=== PATIENT | female | born 1975 | race Caucasian/White ===

== ENCOUNTER 2017-08-05 10:36 | Emergency (ER) | payer MEDICAID ==
--- NOTE | 2017-08-05 12:20 | C.PDOC ---
History Of Present Illness 41 y/o female with PMH of hemorrhoids and diverticulitis presents to the ED for evaluation of rectal bleeding x 3 episodes today. Blood is bright red blood in the toilet after using the bathroom. Notes hard stool but no straining. Denies fever, rash, abdominal pain, nausea, vomiting , or history of anemia at this time. Time Seen by Provider: 08/05/17 11:51 Chief Complaint (Nursing): Abnormal Skin Integrity History Per: Patient History/Exam Limitations: no limitations Onset/Duration Of Symptoms: Hrs Current Symptoms Are (Timing): Still Present Additional History Per: Patient Past Medical History Reviewed: Historical Data, Nursing Documentation, Vital Signs Vital Signs: Last Vital Signs Temp 98.8 F 08/05/17 15:39 Pulse 62 08/05/17 15:39 Resp 17 08/05/17 15:39 BP 119/79 08/05/17 15:39 Pulse Ox 99 08/05/17 15:39 - Medical History PMH: No Chronic Diseases Surgical History: No Surg Hx Family History: States: Unknown Family Hx - Social History Hx Tobacco Use: Yes Hx Alcohol Use: No Hx Substance Use: No - Immunization History Hx Tetanus Toxoid Vaccination: No Hx Influenza Vaccination: No Hx Pneumococcal Vaccination: No Review Of Systems Constitutional: Negative for: Fever, Chills Gastrointestinal: Positive for: Other (rectal bleeding ). Negative for: Nausea , Vomiting, Abdominal Pain Physical Exam - Physical Exam Appears: Non-toxic, No Acute Distress Skin: Normal Color, Warm, Dry Head: Atraumatic, Normacephalic Eye(s): bilateral: Normal Inspection, EOMI Nose: Normal Oral Mucosa: Moist Neck: Supple Chest: Symmetrical, No Tenderness Cardiovascular: Rhythm Regular Respiratory: Normal Breath Sounds, No Rales, No Rhonchi, No Wheezing Gastrointestinal/Abdominal: Soft, No Tenderness, No Guarding, No Rebound Rectal: Rectal Tone, Blood Streaked Stool, Hemorrhoids (very small non thrombosed non tender hemorrhoid), No Tenderness Extremity: Normal ROM, Capillary Refill (less than 2 seconds ) Neurological/Psych: Oriented x3, Normal Speech, Normal Cognition ED Course And Treatment - Laboratory Results Result Diagrams: 08/05/17 12:46 08/05/17 13:26 O2 Sat by Pulse Oximetry: 95 (on RA ) Pulse Ox Interpretation: Normal Progress Note: Bloodwork and urinalysis ordered and reviewed. Discussed with pt no signs of anemia. She needs a colonoscopy and instructed to follow up with GI in 2 days. instructed to return to ER if symtpoms persist or worsen. Case discussed with Dr Padgett, agreed upon plan and treatment. Disposition - Disposition Referrals: Rob Muller MD [Staff Provider] - Disposition: HOME/ ROUTINE Disposition Time: 13:52 Condition: STABLE Additional Instructions: Follow up with primary medical doctor in 1-3 days without fail for further evaluation. Take medications as prescribed. Return to the emergency department at any time if symptoms persist or worsen. 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 - Scribe Statement The provider has reviewed the documentation as recorded by the Scribe (Mariella Jensen) All medical record entries made by the Scribe were at my direction and personally dictated by me. I have reviewed the chart and agree that the record accurately reflects my personal performance of the history, physical exam, medical decision making, and the department course for this patient. I have also personally directed, reviewed, and agree with the discharge instructions and disposition.
[2017-08-05 13:00] LABS: BASO # 0.1 K/uL (0.0-0.2); BASO % 0.7 % (0.0-2.0); EOS % 0.1 % (0.0-4.0); HEMOGLOBIN 15.7 g/dL (11.0-16.0); LYMPH # 2.9 K/uL (1.0-4.3); LYMPH % 28.9 % (20.0-40.0); MEAN CELL VOLUME 90.2 fL (81.0-99.0); MEAN CORPUSCULAR HEMOGLOBIN 31.2 pg (27.0-31.0); MEAN CORPUSCULAR HGB CONC 34.5 g/dL (33.0-37.0); MEAN PLATELET VOLUME 8.2 fL (7.2-11.7); MONO # 0.5 K/uL (0.0-0.8); MONO % 4.9 % (0.0-10.0); NEUT # 6.5 K/uL (1.8-7.0); NEUT % 65.4 % (50.0-75.0); NRBC % 0.1 % (0.0-2.0); RBC 5.03 Mil/uL (3.80-5.20); RED CELL DISTRIBUTION WIDTH 13.5 % (11.5-14.5); WHITE BLOOD COUNT 9.9 K/uL (4.8-10.8)
[2017-08-05 13:51] LABS: ALBUMIN 4.2 g/dL (3.5-5.0); ALT/SGPT 42 U/L (9-52); AST/SGOT 28 U/L (14-36); BLOOD UREA NITROGEN 10 mg/dL (7-17); CALCIUM 9.3 mg/dl (8.6-10.4); GFR AFRICAN-AMERICAN > 60; GFR NON-AFRICAN AMERICAN > 60; LIPASE 98 U/L (23-300)
[2017-08-05 14:31] LABS: HCG,QUALITATIVE URINE NEGATIVE (NEGATIVE)
[2017-08-05 14:34] LABS: SQUAMOUS EPITHIAL < 1 /hpf (0-5); URINE BACTERIA RARE (<OCC); URINE BILIRUBIN NEGATIVE (NEGATIVE); URINE BLOOD NEGATIVE (NEGATIVE); URINE CLARITY Clear (Clear); URINE COLOR Straw (YELLOW); URINE GLUCOSE (UA) NORMAL (Normal); URINE LEUKOCYTE ESTERASE NEG Leu/uL (Negative); URINE NITRATE NEGATIVE (NEGATIVE); URINE PROTEIN NEGATIVE (NEGATIVE); URINE UROBILINOGEN NORMAL mg/dL (0.2-1.0)
[2017-08-05 15:40] VITALS: BP 119/79; PULSE 62; RESP 17; TEMP 98.8
[2017-08-06 15:21] VITALS: O2SAT 95
== END 2017-08-05 15:39 | disposition home or self-care (01) ==
LOC: C.ER 10:36
DX: K62.5 Hemorrhage of anus and rectum (principal)
CPT/HCPCS: 80053; 81001; 83690; 84703; 85025; 99285; G0328

== ENCOUNTER 2017-08-18 06:03 | Day surgery (SDC) | payer MEDICAID ==
[2017-08-18] MEDS ORDERED: Lactated Ringer's 1,000 ML IV ONE ×2 (08:55)
[2017-08-18] MEDS ORDERED: Propofol 10 mg/ml Inj (20 ML) ONE (09:11)
[2017-08-18] MEDS ORDERED: Lidocaine Hydrochloride 5 ML INJ ONE (09:27)
[2017-08-18 10:38] VITALS: RESP 12
[2017-08-18 12:08] VITALS: BP 110/65; PULSE 69; TEMP 97.5; O2SAT 98
== END 2017-08-18 10:40 | disposition home or self-care (01) ==
LOC: C.ENDO 06:03
PROVIDERS: ATTEND Internal Medicine Gastroenterology
DX: D12.4 Benign neoplasm of descending colon (principal); K62.5 Hemorrhage of anus and rectum; Z80.0 Family history of malignant neoplasm of digestive organs; K57.30 Diverticulosis of large intestine without perforation or abscess without bleeding; K64.8 Other hemorrhoids
CPT/HCPCS: 45380; 84703; 88305; J2704; J7120

== ENCOUNTER 2018-03-09 13:44 | Emergency (ER) | payer MEDICAID ==
[2018-03-09 14:14] VITALS: BP 128/90; PULSE 77; RESP 18; TEMP 98.2; O2SAT 98
--- NOTE | 2018-03-09 14:25 | C.PDOC ---
History Of Present Illness 42 year old female complains of pain to left shoulder since yesterday. Patient states she was talking and demonstrating a motion with her arms and then started having this sharp to cramping pain to left upper arm, nonradiating. She applied heat and pain persists. She reports pain is worse when lifting arm up over head or with movement. Denies injury, weakness, numbness, chest pain or SOB. Time Seen by Provider: 03/09/18 14:18 Chief Complaint (Nursing): Upper Extremity Problem/Injury History Per: Patient History/Exam Limitations: no limitations Onset/Duration Of Symptoms: Hrs Current Symptoms Are (Timing): Still Present Quality: "Pain" Exacerbating Factor(s): Movement Past Medical History Reviewed: Historical Data, Nursing Documentation, Vital Signs Vital Signs: Last Vital Signs Temp 98.2 F 03/09/18 14:11 Pulse 77 03/09/18 14:11 Resp 18 03/09/18 14:11 BP 128/90 03/09/18 14:11 Pulse Ox 98 03/09/18 15:47 - Medical History PMH: No Chronic Diseases Surgical History: Back Surgery Family History: States: Unknown Family Hx - Social History Hx Tobacco Use: Yes Hx Alcohol Use: No Hx Substance Use: Yes - Immunization History Hx Tetanus Toxoid Vaccination: Yes Hx Influenza Vaccination: No Hx Pneumococcal Vaccination: No Review Of Systems Cardiovascular: Negative for: Chest Pain Respiratory: Negative for: Shortness of Breath Musculoskeletal: Positive for: Shoulder Pain (left ) Neurological: Negative for: Weakness, Numbness Physical Exam - Physical Exam Appears: Non-toxic, No Acute Distress Skin: Normal Color, Warm, Dry Head: Atraumatic, Normacephalic Eye(s): bilateral: Normal Inspection Oral Mucosa: Moist Neck: Supple Chest: Symmetrical, No Deformity, No Tenderness Cardiovascular: Rhythm Regular, No Murmur Respiratory: Normal Breath Sounds, No Rales, No Rhonchi, No Wheezing Extremity: No Normal ROM (limited in left arm secondary to pain with abduction above 40 degrees ), Tenderness (mild, to lateral aspect of left arm and muscle tenderness to upper humerus ), Capillary Refill (less than 2 seconds ), No Deformity, No Swelling Pulses: Left Radial: Normal Neurological/Psych: Oriented x3, Normal Speech ED Course And Treatment O2 Sat by Pulse Oximetry: 98 (on RA) Pulse Ox Interpretation: Normal - Other Rad left shoulder XR X-Ray: Viewed By Me, Read By Radiologist Interpretation: PROCEDURE: Radiographs of the Left Shoulder. HISTORY: pain x1 day. COMPARISON: None available. FINDINGS: BONES: No acute displaced fracture. The distal clavicle and underlying ribs appear intact. Partially imaged postoperative changes of the thoracic spine. JOINTS: No acute dislocation. SOFT TISSUES: Soft tissues appear unremarkable. No evidence of radiopaque foreign body. IMPRESSION: No acute displaced fracture or dislocation evident. If symptoms persist or if there is continued clinical concern, x-ray follow-up in 7-10 days should be considered. Medical Decision Making Medical Decision Making: Impression: Shoulder pain Plan: * toradol * Shoulder xray Progress: Xray viewed by me and shows no acute fracture, dislocation, calcification, or AC separation Arm sling applied. On re-evaluation, patient resting in no distress and reports pain is improving. Recommend rest, ice and ibuprofen for pain. Advise follow up with ortho if the pain persists Disposition Counseled Patient/Family Regarding: Diagnosis, Need For Followup, Rx Given - Disposition Referrals: Neil Lake III, MD [Staff Provider] - Disposition: HOME/ ROUTINE Disposition Time: 14:51 Condition: GOOD Additional Instructions: Your xray was normal, no fracture. Take Motrin as needed for pain every 6 hours , with food to not upset stomach. Follow up with orthopedic if pain persists over one week. Prescriptions: Ibuprofen [Motrin] 600 mg PO Q8 #30 tab Instructions: Shoulder Tendinopathy (DC) Forms: [facility] (Pashto) - POA Present On Arrival: None - Clinical Impression Clinical Impression: Shoulder tendinitis - PA / OPERATIONS PROCESSOR / Resident Statement MD/DO has reviewed & agrees with the documentation as recorded. - Scribe Statement The provider has reviewed the documentation as recorded by the Scribe (Mariella Jensen) All medical record entries made by the Scribe were at my direction and personally dictated by me. I have reviewed the chart and agree that the record accurately reflects my personal performance of the history, physical exam, medical decision making, and the department course for this patient. I have also personally directed, reviewed, and agree with the discharge instructions and disposition.
--- NOTE | 2018-03-09 15:01 | RAD ---
PROCEDURE: Radiographs of the Left Shoulder HISTORY: pain x1 day COMPARISON: None available FINDINGS: BONES: No acute displaced fracture. The distal clavicle and underlying ribs appear intact. Partially imaged postoperative changes of the thoracic spine. JOINTS: No acute dislocation. SOFT TISSUES: Soft tissues appear unremarkable. No evidence of radiopaque foreign body. IMPRESSION: No acute displaced fracture or dislocation evident. If symptoms persist or if there is continued clinical concern, x-ray follow-up in 7-10 days should be considered.
== END 2018-03-09 15:43 | disposition home or self-care (01) ==
LOC: C.ER 13:44
DX: M75.92 Shoulder lesion, unspecified, left shoulder (principal)
CPT/HCPCS: 73030; 96372; 99285; J1885